=== PATIENT | male | born 2005 | race Caucasian/White ===

== ENCOUNTER 2024-03-04 12:52 | Emergency (ER) | payer MEDICAID ==
[~2024-03-04] VITALS: Ht 185.4 cm; Wt 118.5 kg
[2024-03-04 15:03] VITALS: BP 117/64; PULSE 65; RESP 17; TEMP 97.8; O2SAT 97
[2024-03-04] MEDS: PANTOPRAZOLE 40 MG TAB PO ONE (15:34)
[2024-03-04] MEDS: MAALOX PLUS or MAALOX 30 ML PO ONE (15:34)
[2024-03-04] MEDS: LIDOCAINE VISCOUS 2% 15ML UD MT ONE (15:34)
== END 2024-03-04 15:44 | disposition home or self-care (01) ==
LOC: ER 12:52
DX: R11.2 Nausea with vomiting, unspecified (principal); R51.9 Headache, unspecified; T40.715A Adverse effect of cannabis, initial encounter; Y92.89 Other specified places as the place of occurrence of the external cause